=== PATIENT | female | born 1990 | race Caucasian/White ===

== ENCOUNTER 2021-12-24 10:05 | Inpatient (IN) | payer OTHER ==
[~2021-12-24] VITALS: Ht 167.6 cm; Wt 76.7 kg
[2021-12-24 10:49] LABS: HCT 32.3 % (37.0-47.0); HGB 10.8 g/dl (12.5-16.0); MCH 30.3 pg (25.0-31.0); MCHC 33.4 g/dL (32.0-36.0); MCV 90.7 fL (78.0-100.0); RBC 3.56 M/uL (4.20-5.40); RDW 13.8 % (11.5-14.0); WBC 8.8 K/uL (4.0-10.5)
[2021-12-25 05:48] LABS: HGB 9.6 g/dl (12.5-16.0); MCH 30.6 pg (25.0-31.0); MCHC 33.1 g/dL (32.0-36.0); MCV 92.4 fL (78.0-100.0); MPV 11.4 fL (6.0-9.5); RBC 3.14 M/uL (4.20-5.40); RDW 13.8 % (11.5-14.0); WBC 14.3 K/uL (4.0-10.5)
[2021-12-25] MEDS ORDERED: COLACE100 MG PO (08:19)
[2021-12-25] MEDS ORDERED: PRENATAL FORMU1 EACH PO (08:20)
== END 2021-12-25 11:44 | disposition home or self-care (01) | DRG 787 ==
LOC: FOB 10:05 → UNDOADMIN 10:05 → FOB 12-25 11:44
PROVIDERS: Specialist; ADMIT Obstetrics & Gynecology
PROC: 10D00Z1 Extraction of Products of Conception, Low, Open Approach (ICD-10-PCS; principal; 2021-12-24 12:00)
DX: O35.8XX0 Maternal care for other (suspected) fetal abnormality and damage, not applicable or unspecified (principal); K56.0 Paralytic ileus; Z37.0 Single live birth; Z3A.38 38 weeks gestation of pregnancy; O99.62 Diseases of the digestive system complicating childbirth; O34.211 Maternal care for low transverse scar from previous cesarean delivery; Z20.822 Contact with and (suspected) exposure to COVID-19; O99.344 Other mental disorders complicating childbirth; F41.9 Anxiety disorder, unspecified; O74.6 Other complications of spinal and epidural anesthesia during labor and delivery
CPT/HCPCS: 36415; 86850; 86900; 86901; 90686; J0690; J1100; J1885; J2274; J2405; J2590; J7120